=== PATIENT | male | born 1985 ===

== ENCOUNTER 2018-03-19 09:53 | Emergency (ER) | payer SELFPAY ==
[2018-03-19 10:14] VITALS: O2SAT 99
--- NOTE | 2018-03-19 10:32 | C.PDOC ---
History Of Present Illness 33 year old male presents to the ED for evaluation of lower back pain which began around four days ago. Patient states he was engaging in unprotected sexual intercourse four days ago, and noticed some blood in his semen as well as slight hematuria the following day. Patient denies burning with urination, urinary/bowel incontinence, penile discharge, rash, history of STDs. 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) History/Exam Limitations: language barrier Onset/Duration Of Symptoms: Days (4) Current Symptoms Are (Timing): Still Present Quality Of Discomfort: "Pain" Associated Symptoms: Back Pain Additional History Per: Patient Past Medical History Reviewed: Historical Data, Nursing Documentation, Vital Signs Vital Signs: Last Vital Signs Temp 98 F 03/19/18 10:12 Pulse 98 H 03/19/18 10:12 Resp 18 03/19/18 10:12 BP 151/85 H 03/19/18 10:12 Pulse Ox 99 03/19/18 10:12 - Medical History PMH: No Chronic Diseases Surgical History: No Surg Hx Family History: States: Unknown Family Hx - Social History Hx Alcohol Use: No Hx Substance Use: No - Immunization History Hx Tetanus Toxoid Vaccination: No Hx Influenza Vaccination: No Hx Pneumococcal Vaccination: No Review Of Systems Genitourinary: Positive for: Hematuria. Negative for: Penile Discharge, Rash Musculoskeletal: Positive for: Back Pain Physical Exam - Physical Exam Appears: Non-toxic, No Acute Distress Skin: Normal Color, Warm, Dry Head: Atraumatic, Normacephalic Eye(s): bilateral: Normal Inspection Oral Mucosa: Moist Neck: Supple Back: No CVA Tenderness, No Vertebral Tenderness, Paraspinal Tenderness (left- sided, lower ), No Other (cauda equina sign ) Male Genital: No Testicular Tenderness, No Inguinal Tenderness Extremity: Normal ROM Neurological/Psych: Oriented x3, Normal Speech, Normal Cognition ED Course And Treatment O2 Sat by Pulse Oximetry: 99 (on RA) Pulse Ox Interpretation: Normal Medical Decision Making Medical Decision Making: No cauda equina signs. abd non-ttp. No cvat. No abnl noted in exam. Likely S TD, will rx. Informed pt regarding HIV testing outpt. Plan: * GC/Chlamydia swab * urinalysis * Tylenol PO * Zithromax PO * Rocephin IM * reassess and disposition Progress: GC/Chlamydia swab ordered. Urinalysis ordered and reviewed. Results are within normal limits. Tylenol PO, Zithromax PO, Rocephin IM given. No difficulty urinating. On reassessment, patient is resting comfortably, showing no signs of distress and is stable for discharge. STD precautions discussed with patient. He is advised to follow up with urology/PMD within 1-2 days for further evaluation. Disposition - Disposition Referrals: [facility] [Outside] [facility] [Outside] [facility] [Outside] Joan Gray MD [Staff Provider] - Disposition: HOME/ ROUTINE Disposition Time: 11:57 Condition: GOOD Additional Instructions: USE CONDOMS. SEEK TREATMENT FOR YOUR PARTNERS WEL CAPRI SOLANOE, thank you for letting us take care of you today. Your provider was Elias Bojorquez and you were treated for BACK PAIN. The emergency medical care you received today was directed at your acute symptoms. If you were prescribed any medication, please fill it and take as directed. It may take several days for your symptoms to resolve. Return to the Emergency Department if your symptoms worsen, do not improve, or if you have any other problems. Please contact your doctor or call one of the physicians/clinics you have been referred to that are listed on the Patient Visit Information form that is included in your discharge packet. Bring any paperwork you were given at discharge with you along with any medications you are taking to your follow up visit. Our treatment cannot replace ongoing medical care by a primary care provider outside of the emergency department. Thank you for allowing the [facility] team to be part of your care today. If you had an X-Ray or CT scan: A Radiologist will review the ED reading if any change in treatment is needed we will contact you. If you had a blood, urine, or wound culture: It will take several days for the results, if any change in treatment is needed we will contact you. If you had an STI test: It will take 48 hours for the results. Please call after 1 week if you have not heard back. Instructions: Blood in the Urine (Hematuria) in Adults, Screening for Sexually Transmitted Infections Forms: [employer] (German) Print Language: UKRAINIAN - Clinical Impression Clinical Impression: Hematuria, Screening for STD (sexually transmitted disease) - Scribe Statement The provider has reviewed the documentation as recorded by the Scribe (Viviane Olivarez) Provider Attestation: All medical record entries made by the Scribe were at my direction and personally dictated by me. I have reviewed the chart and agree that the record accurately reflects my personal performance of the history, physical exam, medical decision making, and the department course for this patient. I have also personally directed, reviewed, and agree with the discharge instructions and disposition.
[2018-03-19] MEDS ORDERED: cefTRIAXone (Rocephin) 250 mg Inj IM STA (10:56)
[2018-03-19] MEDS ORDERED: cefTRIAXone 250 MG in Lidocaine Hydrochloride 1% 0.9 ML IM ONE (11:15)
[2018-03-19 11:18] LABS: URINE BILIRUBIN NEGATIVE (NEGATIVE); URINE CLARITY Clear (Clear); URINE COLOR Yellow (YELLOW); URINE GLUCOSE (UA) NORMAL (Normal); URINE LEUKOCYTE ESTERASE NEG Leu/uL (Negative); URINE PROTEIN NEGATIVE (NEGATIVE); URINE UROBILINOGEN NORMAL mg/dL (0.2-1.0)
[2018-03-19 11:20] LABS: URINE BLOOD 1+ (NEGATIVE)
[2018-03-19 11:35] VITALS: BP 131/84; PULSE 61; RESP 20; TEMP 98.6
== END 2018-03-19 12:05 | disposition home or self-care (01) ==
LOC: C.ER 09:53
DX: R31.9 Hematuria, unspecified (principal); Z11.3 Encounter for screening for infections with a predominantly sexual mode of transmission
CPT/HCPCS: 81001; 87491; 87591; 96372; 99284; J0696

== ENCOUNTER 2018-04-18 16:35 | Emergency (ER) | payer SELFPAY ==
[2018-04-18 16:50] VITALS: BMI 25.7
[2018-04-18 16:52] VITALS: BP 125/83; PULSE 59; RESP 18; TEMP 98.1; O2SAT 99
[2018-04-18] MEDS ORDERED: Naproxen 550 mg Tab PO STA (17:10)
[2018-04-18] MEDS ORDERED: Naproxen 550 mg Tab PO ONE (17:40)
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
== END 2018-04-18 18:00 | disposition home or self-care (01) ==
LOC: C.ER 16:35
DX: S33.5XXA Sprain of ligaments of lumbar spine, initial encounter (principal); V49.40XA Driver injured in collision with unspecified motor vehicles in traffic accident, initial encounter